=== PATIENT | female | born 1940 | race Caucasian/White ===

== ENCOUNTER 2016-05-04 13:14 | Emergency (ER) | payer OTHER, BC ==
[~2016-05-04] VITALS: Ht 160 cm; Wt 83.9 kg
[~2016-05-04 13:14] MED LIST: ACULAR 0.5% EYE5 ML OPHTHALMIC; ALPRAZOLAM ER1 MG PO; AMITRIPTYLINE H10 M1 PO; ASPIRIN EC81 M1 PO; B-50 COMPLEX1 EAC1 PO; CALCIUM 600 +1 EA14 PO; CIPRO250 M1 PO; COREG CR20 MG PO; COREG25 MG PO; CYMBALTA30 MG PO; DULCOLAX5 MG PO; EFFEXOR XR150 MG PO; ESTRACE1 MG PO; EXCEDRIN CAPLE1 EACH PO; FOLIC ACID0.4 MG PO; HYDROCODON-ACE1 EAC7 PO; KEFLEX250 MG PO; KLOR-CON M2020 MEQ PO; LASIX 40 MG TAB40 MG PO; LEVOTHROID75 MCG PO; LISINOPRIL10 MG PO; LISINOPRIL20 MG PO; LORTAB 7.5/5001 TA3 PO; LYRICA 50 MG50 MG PO; MAGOX 400400 MG PO; METHOTREXATE 22.5 MG PO; MULTIVITAMINS1 EAC7 PO; POTASSIUM20 PO; PREDNISONE 5 MG5 M1 PO; PRILOSEC 20 MG20 MG PO; ULTRAM 50MG TAB50 MG PO; VALACYCLOVIR HCL1 GM; VITAMIN D1000 UNI2 PO; VITAMIN D400 UNI4 PO; VITAMIN E400 UNIT PO; XANAX 0.5 MG0.5 MG PO
[2016-05-04] MEDS ORDERED: LYRICA150 MG PO (15:27)
[2016-05-04] MEDS ORDERED: VENTOLIN HFA 1818 GM INH (16:35)
== END 2016-05-04 16:40 | disposition home or self-care (01) ==
LOC: ER 13:14
DX: S09.90XA Unspecified injury of head, initial encounter (principal); S70.02XA Contusion of left hip, initial encounter; S40.012A Contusion of left shoulder, initial encounter; J20.9 Acute bronchitis, unspecified; Z96.659 Presence of unspecified artificial knee joint; Z90.710 Acquired absence of both cervix and uterus; Z98.890 Other specified postprocedural states; Z88.1 Allergy status to other antibiotic agents; Z88.2 Allergy status to sulfonamides; W19.XXXA Unspecified fall, initial encounter; Y93.89 Activity, other specified; Y92.008 Other place in unspecified non-institutional (private) residence as the place of occurrence of the external cause; Y99.8 Other external cause status